=== PATIENT | male | born 1970 | race Caucasian/White ===

== ENCOUNTER 2017-01-19 19:23 | Emergency (ER) | payer OTHER ==
[2017-01-19 19:29] VITALS: RESP 16; TEMP 97.9
[2017-01-19] MEDS ORDERED: TDAP ADULT 0.5 ML INJ (BOOSTRIX) IM ONE (20:20)
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
[2017-01-19 21:40] VITALS: BP 121/65; PULSE 66; O2SAT 96
== END 2017-01-19 21:40 | disposition home or self-care (01) ==
PROC: 0HQBXZZ Repair Right Upper Arm Skin, External Approach (ICD-10-PCS; principal; 2017-01-19)
DX: S41.111A Laceration without foreign body of right upper arm, initial encounter (principal); Z23 Encounter for immunization; W22.8XXA Striking against or struck by other objects, initial encounter; Y92.410 Unspecified street and highway as the place of occurrence of the external cause; Y99.8 Other external cause status; Y93.89 Activity, other specified